=== PATIENT | female | born 1970 | race Caucasian/White ===

== ENCOUNTER 2017-10-02 22:55 | Observation (INO) | payer OTHER ==
[~2017-10-02] VITALS: Ht 162.6 cm; Wt 68.0 kg
[2017-10-02 23:06] VITALS: BP 130/65; PULSE 88; RESP 18; TEMP 98; O2SAT 99
[2017-10-02] MEDS ORDERED: SODIUM CHLORIDE 0.9% FLUSH 10 ML FLUSH IVF PRN (23:15)
[2017-10-02 23:18] VITALS: RESP 18
[2017-10-02 23:29] LABS: AUTOMATED NEUTROPHIL # 7.7 TH/MM3 (1.8-7.7); BASOPHIL % 0.3 % (0.0-2.0); EOSINOPHIL % 0.2 % (0.0-4.0); HEMATOCRIT 40.3 % (35.0-46.0); HEMOGLOBIN 13.5 GM/DL (11.6-15.3); LYMPH % 16.2 % (9.0-44.0); LYMPHOCYTE # 1.5 TH/MM3 (1.0-4.8); MEAN CORPUSCULAR HEMOGLOBIN 30.8 PG (27.0-34.0); MEAN CORPUSCULAR HGB CONC 33.5 % (32.0-36.0); MEAN PLATELET VOLUME 8.2 FL (7.0-11.0); MONO % 1.6 % (0.0-8.0); MONOCYTE # 0.2 TH/MM3 (0-0.9); NEUT % 81.7 % (16.0-70.0); PLATELET COUNT 276 TH/MM3 (150-450); RED BLOOD COUNT 4.38 MIL/MM3 (4.00-5.30); RED CELL DISTRIBUTION WIDTH 13.8 % (11.6-17.2); WHITE BLOOD COUNT 9.4 TH/MM3 (4.0-11.0)
--- NOTE | 2017-10-02 23:37 | PD ---
HPI Chief Complaint: Chest Pain Time Seen by Provider: 23:11 Travel History International Travel<30 days: No Contact w/Intl Traveler<30days: No Traveled to known affect area: No History of Present Illness HPI Patient is a 47-year-old female presents emergency department for evaluation of chest pain. Patient states been going on and off for the past few days, she became alarmed when the pain woke her up for a sound sleep and she was terrified she was very sweaty had pain radiating down her right arm so she was some nausea without vomiting and dizziness. She denies a history of coronary artery disease. She is not taking any blood thinners, no history of blood clots no history of hormone replacement therapy or oral contraceptive pills. She was given nitroglycerin and aspirin in route and had complete relief of her symptoms. She has never had a stress test or cardiac catheterization before. No history of high blood pressure high cholesterol or diabetes. States symptoms were severe, resolved, alleviating factors as above, duration is only a few minutes. She states initially she had some left arm pain but has a young child at home and is lifting the child a lot and thought that this was causing her arm pain but her pain moved to the other side. PFSH Past Medical History Cancer: Yes (breast) Immunizations Current: Yes Tetanus Vaccination: Unknown Influenza Vaccination: Yes ?: Not Social History Alcohol Use: No Tobacco Use: Yes Substance Use: No Allergies-Medications (Allergen,Severity, Reaction): Coded Allergies: penicillin G (Verified Allergy, Severe, Anaphylaxis, 10/02/17) Reported Meds & Prescriptions Reported Meds & Active Scripts Active No Active Prescriptions or Reported Medications Review of Systems Except as stated in HPI: all other systems reviewed are Neg Physical Exam Narrative GENERAL: Well-developed well-nourished no obvious distress SKIN: Focused skin assessment warm/dry. HEAD: Atraumatic. Normocephalic. EYES: Pupils equal and round. No scleral icterus. No injection or drainage. ENT: No nasal bleeding or discharge. Mucous membranes pink and moist. NECK: Trachea midline. No JVD. CARDIOVASCULAR: Regular rate and rhythm. No murmur appreciated. RESPIRATORY: No accessory muscle use. Clear to auscultation. Breath sounds equal bilaterally. GASTROINTESTINAL: Abdomen soft, non-tender, nondistended. Hepatic and splenic margins not palpable. MUSCULOSKELETAL: No obvious deformities. No clubbing. No cyanosis. No edema. NEUROLOGICAL: Awake and alert. No obvious cranial nerve deficits. Motor grossly within normal limits. Normal speech. PSYCHIATRIC: Appropriate mood and affect; insight and judgment normal. Data Data Last Documented VS Vital Signs Date Time Temp Pulse Resp B/P (MAP) Pulse Ox O2 Delivery O2 Flow Rate FiO2 10/02/17 23:19 89 18 100 Room Air 10/02/17 23:06 98.0 130/65 (86) Orders Orders Electrocardiogram (10/02/17:14) Complete Blood Count With Diff (10/02/17:14) Comprehensive Metabolic Panel (10/02/17:14) Magnesium (Mg) (10/02/17:14) Prothrombin Time / Inr (Pt) (10/02/17:14) Act Partial Throm Time (Ptt) (10/02/17:14) Troponin I (10/02/17:14) Lipase (10/02/17:14) Chest, Single Ap (10/02/17:14) Ecg Monitoring (10/02/17:14) Iv Access Insert/Monitor (10/02/17 23:14) Oximetry (10/02/17:14) Oxygen Administration (10/02/17:14) Sodium Chloride 0.9% Flush (Ns Flush) (10/02/17 23:15) Morphine Inj (Morphine Inj) (10/03/17 00:30) Nitroglycerin Sl (Nitrostat Sl) (10/03/17 00:30) Nitroglycerin 2% Oint (Nitroglycerin 2% (10/03/17 00:30) Activity Bed Rest With Brp (10/03/17:19) Vital Signs (Adult) Q4H (10/03/17:19) Cardiac Rhythm .As Directed (10/03/17) Notify Dr: Other .PRN (10/03/17) Notify Parameters (10/03/17:19) Resp Oxygen Nasal Cannula (10/03/17 ) Ckmb (Isoenzyme) Profile (10/03/17 00:19) Ckmb (Isoenzyme) Profile (10/03/17 03:19) Troponin I (10/03/17:19) Troponin I (10/03/17 03:19) Electrocardiogram (10/03/17 00:19) Electrocardiogram (10/03/17 03:19) ^ Obtain (10/03/17 00:19) Sodium Chloride 0.9% Flush (Ns Flush) (10/03/17 00:30) Sodium Chloride 0.9% Flush (Ns Flush) (10/03/17 09:00) Multimedia Manager / Telemetry ERIN.Q8H (10/03/17 00:19) Admit Order (Ed Use Only) (10/03/17 ) Labs Laboratory Tests Test 10/02/17 23:15 White Blood Count 9.4 TH/MM3 Red Blood Count 4.38 MIL/MM3 Hemoglobin 13.5 GM/DL Hematocrit 40.3 % Mean Corpuscular Volume 92.0 FL Mean Corpuscular Hemoglobin 30.8 PG Mean Corpuscular Hemoglobin Concent 33.5 % Red Cell Distribution Width 13.8 % Platelet Count 276 TH/MM3 Mean Platelet Volume 8.2 FL Neutrophils (%) (Auto) 81.7 % Lymphocytes (%) (Auto) 16.2 % Monocytes (%) (Auto) 1.6 % Eosinophils (%) (Auto) 0.2 % Basophils (%) (Auto) 0.3 % Neutrophils # (Auto) 7.7 TH/MM3 Lymphocytes # (Auto) 1.5 TH/MM3 Monocytes # (Auto) 0.2 TH/MM3 Eosinophils # (Auto) 0.0 TH/MM3 Basophils # (Auto) 0.0 TH/MM3 CBC Comment DIFF FINAL Differential Comment Prothrombin Time 10.5 SEC Prothromb Time International Ratio 1.0 RATIO Activated Partial Thromboplast Time 28.7 SEC Blood Urea Nitrogen 10 MG/DL Creatinine 0.62 MG/DL Random Glucose 97 MG/DL Total Protein 7.9 GM/DL Albumin 3.8 GM/DL Calcium Level 9.0 MG/DL Magnesium Level 2.2 MG/DL Alkaline Phosphatase 113 U/L Aspartate Amino Transf (AST/SGOT) 15 U/L Alanine Aminotransferase (ALT/SGPT) 16 U/L Total Bilirubin 0.2 MG/DL Sodium Level 141 MEQ/L Potassium Level 4.1 MEQ/L Chloride Level 104 MEQ/L Carbon Dioxide Level 27.2 MEQ/L Anion Gap 10 MEQ/L Estimat Glomerular Filtration Rate 103 ML/MIN Troponin I LESS THAN 0.02 NG/ML Lipase 104 U/L MDM Medical Decision Making Medical Screen Exam Complete: Yes Emergency Medical Condition: Yes Differential Diagnosis ACS, ME, PE is excluded by Wells and PERC criteria, pneumonia, reflux, esophageal spasm. Narrative Course Patient room to the emergency department, initial EKG troponin negative, basic labs reassuring, chest x-ray negative. She had gradual return of her symptoms, morphine and nitroglycerin were ordered for her. Discussed that until she has a stress test cannot give her reassurance is that this is not her heart. He certainly gives several concerning symptoms for heart disease. Discussed consideration for chest pain center observation and she is agreeable. Diagnosis Primary Impression: Chest pain Admitting Information Admitting Physician Requests: Observation Scripts No Active Prescriptions or Reported Meds Condition: Jacob Pate MD October 02, 2017 23:36
[2017-10-02 23:39] LABS: PROTHROMBIN TIME - PATIENT 10.5 SEC (9.8-11.6)
[2017-10-02 23:51] LABS: ALBUMIN 3.8 GM/DL (3.4-5.0); AST (GOT) 15 U/L (15-37); BICARBONATE 27.2 MEQ/L (21.0-32.0); BLOOD UREA NITROGEN 10 MG/DL (7-18); CHLORIDE 104 MEQ/L (98-107); CREATININE 0.62 MG/DL (0.50-1.00); GLOMERULAR FILTRATION RATE 103 ML/MIN (>89); GLUCOSE,RANDOM 97 MG/DL (74-106); MAGNESIUM 2.2 MG/DL (1.5-2.5); SODIUM (NA) 141 MEQ/L (136-145)
[2017-10-02 23:57] LABS: ALKALINE PHOSPHATASE 113 U/L (45-117); ALT (GPT) 16 U/L (10-53); TOTAL BILIRUBIN ADULT 0.2 MG/DL (0.2-1.0); TOTAL PROTEIN 7.9 GM/DL (6.4-8.2); TROPONIN I LESS THAN 0.02 NG/ML (0.02-0.05)
[2017-10-03] VITALS (9 sets, daily range): BP systolic 86–144; BP diastolic 54–77; PULSE 68–90; RESP 16–18; TEMP 97.5–98; O2SAT 95–100
--- NOTE | 2017-10-03 00:01 | RADRPT ---
EXAM DATE/TIME: 10/02/2017 23:23 [facility] COMPARISON: No previous studies available for comparison. INDICATIONS : SOB with chest pain x 4 days MEDICAL HISTORY : None. SURGICAL HISTORY : None. ENCOUNTER: Initial ACUITY: 4 - 6 days PAIN SCORE: 8/10 LOCATION: Bilateral chest FINDINGS: A single view of the chest demonstrates the lungs to be symmetrically aerated without evidence of mas s, infiltrate or effusion. The cardiomediastinal contours are unremarkable. Osseous structures are intact. CONCLUSION: No evidence of acute cardiopulmonary disease. Andres Henning MD on October 03, 2017 at 0:00 Board Certified Radiologist. This report was verified electronically.
[2017-10-03] MEDS ORDERED: NITROGLYCERIN 0.4 MG SL 25 TABS/BTL SL ONE (00:30)
[2017-10-03] MEDS ORDERED: MORPHINE SULFATE 4 MG/ML INJ IV PUSH ONE ×2 (00:30→06:15)
[2017-10-03] MEDS ORDERED: ONDANSETRON ODT 4 MG TAB PO ONE (00:30)
[2017-10-03] MEDS ORDERED: SODIUM CHLORIDE 0.9% FLUSH 10 ML FLUSH IV FLUSH PRN (00:30)
[2017-10-03] MEDS ORDERED: NITROGLYCERIN 2% OINT 1 GM PACKET TOPICAL ONE (00:30)
[2017-10-03 02:57] LABS: TROPONIN I LESS THAN 0.02 NG/ML (0.02-0.05)
[2017-10-03 06:43] LABS: TROPONIN I LESS THAN 0.02 NG/ML (0.02-0.05)
[2017-10-03] MEDS: SODIUM CHLORIDE 0.9% FLUSH 10 ML FLUSH IV FLUSH SCH ×2 (09:12→21:13)
[2017-10-03] MEDS: ONDANSETRON HCL 4 MG/2 ML VIAL IV PUSH PRN ×3 (09:12→21:13)
[2017-10-03] MEDS ORDERED: SODIUM CHLOR 0.9% 1000 ML INJ 1,000 ML IV ONE (10:04)
[2017-10-03] MEDS ORDERED: KETOROLAC TROMETHAMINE 30 MG/ML (IVP) VIAL IVP ONE (10:15)
--- NOTE | 2017-10-03 10:32 | HHI.HP ---
[facility] Primary Care Physician Iwona Cochran DO Chief Complaint Chest pain History of Present Illness This is a 47-year-old female the presents to ED via [facility] with a complaint of developing a discomfort in her chest while at home last evening. It was a discomfort in the center of her chest that woke her up. It radiated to left side of her back and into the left arm. She was diaphoretic and short of breath. She felt little nauseous and went to the bathroom and had one episode of nonbloody emesis. She called 911. At that time her discomfort was a 10 out of 10. She was given sublingual nitroglycerin tablets which did not help the discomfort. She states she was then given nitro spray sublingually which also did not help the discomfort. Was given nitroglycerin ointment in the ED which did not help the discomfort but states she developed a headache soon afterwards. The discomfort is worsened when she takes in a deep breath. When she takes in a deep breath a sharp discomfort will also occur. She has not had symptoms like this in the past. Denies recent illness. Denies fevers or chills. Cannot recall prior cardiac testing. Patient denies . States she has not had a period since 1999 when she had a an endometrial ablation. Review of Systems General: Patient denies fevers, chills, and recent travel. HEENT: Patient denies headache, sore throat, difficulty swallowing. Cardiovascular: Has the chest discomfort as mentioned above. Denies sensation of heart beating rapidly or irregularly. No syncope. She was diaphoretic. Respiratory: She has been shortness of breath and the discomfort is worsened with deep inspiration. Denies coughing wheezing or hemoptysis. GI: She was nauseous with one episode of nonbloody emesis. Denies diarrhea, abdominal pain, bloody stools. Musculoskeletal: Chronic back pain. Patient denies joint pain or edema. Denies calf pain or edema. Neurovascular: Patient denies numbness, tingling, weakness in extremities. Denies headache. Endocrine: Denies polyuria and polydipsia. Hematologic: Denies easy bruising. Skin: Denies rash or itching. Past Family Social History Allergies: Coded Allergies: penicillin G (Verified Allergy, Severe, Anaphylaxis, 10/02/17) Past Medical History Tobacco abuse. Denies hyperlipidemia, hypertension, diabetes, and CAD. Past Surgical History Endometrial ablation in 1999. Reported Medications Reported Meds & Active Scripts Active No Active Prescriptions or Reported Medications Active Ordered Medications Current Medications Medications (Trade) Dose Ordered Sig/Ailsha Route Start Time Stop Time Status Last Admin (NS Flush) 2 ml UNSCH PRN IV FLUSH 10/03/17 00:30 10/03/17 06:18 (NS Flush) 2 ml BID IV FLUSH 10/03/17 09:00 10/03/17 09:12 (Zofran Inj) 4 mg Q6H PRN IV PUSH 10/03/17 08:45 10/03/17 09:12 (Toradol Inj) 30 mg ONCE ONCE IVP 10/03/17 10:15 10/03/17 10:16 UNV Sodium Chloride 1,000 ml @ 1,000 mls/hr Q1H ONCE IV 10/03/17 10:04 10/03/17 11:03 UNV (Percocet 10-325 Mg) 1 tab Q4H PRN PO 10/03/17 10:15 UNV Family History Denies family history of CAD. Social History Smokes one half pack a series daily for the past 20 years. Prior to that she smoked about 1 pack a series daily for 10 years. Denies alcohol or illicit drug use. Physical Exam Vital Signs Vital Signs Date Time Temp Pulse Resp B/P (MAP) Pulse Ox O2 Delivery O2 Flow Rate FiO2 10/03/17 08:29 98.0 89 16 129/69 (89) 100 10/03/17 06:23 15 10/03/17 05:34 84 16 130/74 (92) 99 10/03/17 04:40 90 10/03/17 04:27 97.7 82 16 86/54 (65) 95 10/03/17 03:44 97.7 68 16 144/65 (91) 98 10/03/17 01:00 97.5 84 16 105/55 (72) 97 10/03/17 00:52 10/03/17 00:39 88 18 124/77 (93) 100 Room Air 10/02/17 23:19 89 18 100 Room Air 10/02/17 23:18 100 Room Air 10/02/17 23:18 18 10/02/17 23:06 98.0 88 18 130/65 (86) 99 Physical Exam GENERAL: This is a well-nourished, well-developed patient, in no apparent distress. Patient speaks in clear complete sentences. Patient is pleasant. HEENT: Head is atraumatic and normocephalic. Neck is supple without lymphadenopathy and trachea is midline. No JVD or carotid bruits. CARDIOVASCULAR: Regular rate and rhythm without murmurs, gallops, or rubs. RESPIRATORY: Clear to auscultation. Breath sounds equal bilaterally. No wheezes , rales, or rhonchi. Chest wall is nontender. No use of accessory muscles. GASTROINTESTINAL: Abdomen is nontender, nondistended. Abdomen soft. No obvious pulsatile mass or bruit. No CVA tenderness. Strong femoral pulses bilaterally. Normal bowel sounds in all quadrants. MUSCULOSKELETAL: Patient is moving upper and lower extremities freely. No calf tenderness or edema, no Homans sign. Strong pulses in upper and lower extremities. NEUROLOGICAL: Patient is alert and oriented. Cranial nerves 2-12 are grossly intact. No focal deficits and speech is clear. SKIN: No rash and turgor is normal. Laboratory Laboratory Tests Test 10/02/17 23:15 10/03/17 02:15 10/03/17 05:25 White Blood Count 9.4 Red Blood Count 4.38 Hemoglobin 13.5 Hematocrit 40.3 Mean Corpuscular Volume 92.0 Mean Corpuscular Hemoglobin 30.8 Mean Corpuscular Hemoglobin Concent 33.5 Red Cell Distribution Width 13.8 Platelet Count 276 Mean Platelet Volume 8.2 Neutrophils (%) (Auto) 81.7 Lymphocytes (%) (Auto) 16.2 Monocytes (%) (Auto) 1.6 Eosinophils (%) (Auto) 0.2 Basophils (%) (Auto) 0.3 Neutrophils # (Auto) 7.7 Lymphocytes # (Auto) 1.5 Monocytes # (Auto) 0.2 Eosinophils # (Auto) 0.0 Basophils # (Auto) 0.0 CBC Comment DIFF FINAL Differential Comment Prothrombin Time 10.5 Prothromb Time International Ratio 1.0 Activated Partial Thromboplast Time 28.7 Blood Urea Nitrogen 10 Creatinine 0.62 Random Glucose 97 Total Protein 7.9 Albumin 3.8 Calcium Level 9.0 Magnesium Level 2.2 Alkaline Phosphatase 113 Aspartate Amino Transf (AST/SGOT) 15 Alanine Aminotransferase (ALT/SGPT) 16 Total Bilirubin 0.2 Sodium Level 141 Potassium Level 4.1 Chloride Level 104 Carbon Dioxide Level 27.2 Anion Gap 10 Estimat Glomerular Filtration Rate 103 Troponin I LESS THAN 0.02 LESS THAN 0.02 LESS THAN 0.02 Lipase 104 Total Creatine Kinase 38 34 Result Diagram: 10/02/17231410/02/172314 Imaging Last 48 hours Impressions Chest X-Ray 10/02/172313 Signed Impressions: Service Date/Time: Monday, October 02, 2017 23:23 - CONCLUSION: No evidence of acute cardiopulmonary disease. Adnres Henning MD Course EKGs are sinus rhythm without significant ST segment depressions or elevations. Caprini VTE Risk Assessment Caprini VTE Risk Assessment: No/Low Risk (score <= 1) Caprini Risk Assessment Model Point Value = 1 Point Value = 2 Point Value = 3 Point Value = 5 Age 41-60 Minor surgery BMI > 25 kg/m2 Swollen legs Varicose veins or History of unexplained or recurrent spontaneous Oral contraceptives or hormone replacement Sepsis (< 1 month) Serious lung disease, including pneumonia (< 1 month) Abnormal pulmonary function Acute myocardial infarction Congestive heart failure (< 1 month) History of inflammatory bowel disease Medical patient at bed rest Age 61-74 Arthroscopic surgery Major open surgery (> 45 min) Laparoscopic surgery (> 45 min) Malignancy Confined to bed (> 72 hours) Immobilizing plaster cast Central venous access Age >= 75 History of VTE Family history of VTE Factor V Leiden Prothrombin [id number] Lupus anticoagulant Anticardiolipin antibodies Elevated serum homocysteine Heparin-induced thrombocytopenia Other congenital or acquired thrombophilia Stroke (< 1 month) Elective arthroplasty Hip, pelvis, or leg fracture Acute spinal cord injury (< 1 month) Prophylaxis Regimen Total Risk Factor Score Risk Level Prophylaxis Regimen 0-1 Low Early ambulation 2 Moderate Order ONE of the following: *Sequential Compression Device (SCD) *Heparin 5000 units SQ BID 3-4 Higher Order ONE of the following medications: *Heparin 5000 units SQ TID *Enoxaparin/Lovenox 40 mg SQ daily (WT < 150 kg, CrCl > 30 mL/min) *Enoxaparin/Lovenox 30 mg SQ daily (WT < 150 kg, CrCl > 10-29 mL/min) *Enoxaparin/Lovenox 30 mg SQ BID (WT < 150 kg, CrCl > 30 mL/min) AND/OR *Sequential Compression Device (SCD) 5 or more Highest Order ONE of the following medications: *Heparin 5000 units SQ TID (Preferred with Epidurals) *Enoxaparin/Lovenox 40 mg SQ daily (WT < 150 kg, CrCl > 30 mL/min) *Enoxaparin/Lovenox 30 mg SQ daily (WT < 150 kg, CrCl > 10-29 mL/min) *Enoxaparin/Lovenox 30 mg SQ BID (WT < 150 kg, CrCl > 30 mL/min) AND *Sequential Compression Device (SCD) Assessment and Plan Assessment and Plan * Chest pain: Patient has had serial cardiac enzymes and EKGs for ruling out purposes. She will be seen by Dr. Ruiz cardiology in the chest pain center. We will also get a d-dimer to hopefully rule out pulmonary embolus. That is ruled out that she would likely have a Lexiscan. Patient will be discharged home if her stress test is nonischemic with instructions to follow-up with PCP. Return to ED for interval issues. Patient is stable at this time. She is agreeable to this plan. Shalom Donaldson October 03, 2017 10:32
[2017-10-03] MEDS ORDERED: DEXAMETHASONE SOD PHOS 20 MG/5 ML VIAL IV PUSH ONE (12:45)
--- NOTE | 2017-10-03 13:52 | EKG ---
Date Performed: 10/03/2017 Time Performed: 02:22:27 PTAGE: 47 years EKG: Sinus rhythm INCOMPLETE RIGHT BUNDLE BRANCH BLOCK NONSPECIFIC T-WAVE ABNORMALITY BORDERLINE ECG PREVIOUS TRACING : 10/02/2017 23.04 Since previous tracing, no significant change noted DOCTOR: Earl Ruiz Interpretating Date/Time 10/03/2017 13:51:10
--- NOTE | 2017-10-03 13:52 | EKG ---
Date Performed: 10/03/2017 Time Performed: 05:31:24 PTAGE: 47 years EKG: Sinus rhythm POSSIBLE RIGHT VENTRICULAR CONDUCTION DELAY Poor R wave progression ABNORMAL ECG PREVIOUS TRACING : 10/03/2017 02.22 Since previous tracing, no significant change noted DOCTOR: Earl Ruiz Interpretating Date/Time 10/03/2017 13:50:23
--- NOTE | 2017-10-03 13:53 | EKG ---
Date Performed: 10/02/2017 Time Performed: 23:04:23 PTAGE: 47 years EKG: Sinus rhythm INCOMPLETE RIGHT BUNDLE BRANCH BLOCK NONSPECIFIC T-WAVE ABNORMALITY BORDERLINE ECG NO PREVIOUS TRACING DOCTOR: Earl Ruiz Interpretating Date/Time 10/03/2017 13:52:08
[2017-10-03] MEDS ORDERED: REGADENOSON INJ 0.4 MG/5 ML SYR ONE (14:34)
[2017-10-03] MEDS: oxyCODONE/ACETAMINOPHEN 10 MG/325 MG TAB PO PRN ×2 (15:46→21:14)
--- NOTE | 2017-10-03 16:11 | RADRPT ---
EXAM DATE/TIME: 10/03/2017 14:20 [facility] COMPARISON: No previous studies available for comparison. INDICATIONS : Chest pain radiating down right arm with diaphoresis, nausea and dizziness. Angina. DOSE: 27.4 mCi Tc99m Myoview at stress. 8.4 mCi Tc99m Myoview at rest. 0.4 mg Lexiscan STRESS SYMPTOMS: Headache, chest pain, and anxious. EJECTION FRACTION: 65% MEDICAL HISTORY : Carcinoma, breast. SURGICAL HISTORY : None. ENCOUNTER: Initial ACUITY: 4 - 6 days PAIN SCALE: 8/10 LOCATION: chest TECHNIQUE: The patient underwent pharmacologic stress with infusion of prescribed dose. Continuous ECG tracing was monitored during stress. Gated SPECT imaging was performed after stress and conventional SPECT i maging was performed at rest. The examination was performed on a SPECT/CT scanner, both attenuation and non-corrected datasets were reviewed. FINDINGS: DISTRIBUTION: The maximum perfused segment at stress is in the anterior wall. PERFUSION STUDY: The pattern of perfusion at stress is within normal limits. GATED STUDY: There is intact wall motion and thickening without hypokinetic or dyskinetic segments. CONCLUSION: Normal study RISK CATEGORY: Low (<1% Annual Mortality Rate) Andres Cota MD on October 03, 2017 at 16:07 Board Certified Radiologist. This report was verified electronically.
--- NOTE | 2017-10-03 18:58 | ECHRPT ---
Indication: Chest pain, unspecified CONCLUSIONS The transthoracic study is normal by two-dimensional, color flow imaging and Doppler interrogation. The pulmonary valve is not well visualized. The transthoracic study is normal by two-dimensional, color flow imaging and Doppler interrogation. normal lv size, wall thicknes, ef@ 55% BP: / HR: Rhythm: MEASUREMENTS (Male / Female) Normal Values Technical Quality: 2D ECHO LV Diastolic Diameter PLAX 4.1 cm 4.2 - 5.9 / 3.9 - 5.3 cm LV Systolic Diameter PLAX 2.9 cm IVS Diastolic Thickness 0.9 cm 0.6 - 1.0 / 0.6 - 0.9 cm LVPW Diastolic Thickness 1.0 cm 0.6 - 1.0 / 0.6 - 0.9 cm LV Relative Wall Thickness 0.4 RV Internal Dim ED PLAX 2.2 cm M-MODE Aortic Root Diameter MM 2.8 cm LA Systolic Diameter MM 3.4 cm LA Ao Ratio MM 1.2 AV Cusp Separation MM 1.7 cm FINDINGS LEFT VENTRICLE Normal left ventricular size and wall thickness. The left ventricular systolic function is normal wi th an estimated ejection fraction in the range of 60-65%. Left ventricular diastolic function parameters a re normal. RIGHT VENTRICLE Normal right ventricular size and systolic function. LEFT ATRIUM The left atrial size is normal. RIGHT ATRIUM The right atrial size is normal. ATRIAL SEPTUM Normal atrial septal thickness without atrial level shunting by limited color doppler interrogation. AORTA The aortic root and proximal ascending aorta are normal in size on limited imaging. MITRAL VALVE Structurally normal mitral valve. No mitral valve stenosis or regurgitation. AORTIC VALVE Trileaflet aortic valve. No aortic valve stenosis or regurgitation. TRICUSPID VALVE Structurally normal tricuspid valve. No tricuspid valve stenosis or regurgitation. PULMONARY VALVE The pulmonary valve is not well visualized. VESSELS The inferior vena cava is normal in size. PERICARDIUM No pericardial effusion. Ismael Sands MD, FACC, FSCAI (Electronically Signed) Final Date:03 Oct 2017 18:57
[2017-10-03] MEDS ORDERED: DEXAMETHASONE SOD PHOS 4 MG/ML VIAL IV PUSH ONE (22:30)
[2017-10-04 00:32] VITALS: BP 125/67; PULSE 70; RESP 16; TEMP 97.5; O2SAT 95
[2017-10-04] MEDS: ONDANSETRON HCL 4 MG/2 ML VIAL IV PUSH PRN (03:57)
[2017-10-04] MEDS: oxyCODONE/ACETAMINOPHEN 10 MG/325 MG TAB PO PRN (03:59)
[2017-10-04 04:08] VITALS: BP 122/59; PULSE 74; RESP 16; TEMP 97.5; O2SAT 96
[2017-10-04 04:21] VITALS: PULSE 77
[2017-10-04] MEDS ORDERED: DEXAMETHASONE SOD PHOS 4 MG/ML VIAL IV PUSH ONE (04:30)
[2017-10-04 07:10] VITALS: PULSE 72
[2017-10-04 07:53] VITALS: O2SAT 98
[2017-10-04] MEDS: SODIUM CHLORIDE 0.9% FLUSH 10 ML FLUSH IV FLUSH SCH (09:24)
[2017-10-04] MEDS ORDERED: MEDR4PAK PO (09:28)
[2017-10-04] MEDS ORDERED: ZOFR4TAB PO (09:28)
--- NOTE | 2017-10-04 09:29 | HHI.DCPOC ---
Discharge Care Plan Diagnosis: (1) Viral pericarditis Goals to Promote Your Health * To prevent worsening of your condition and complications * To maintain your health at the optimal level Directions to Meet Your Goals Take your medications as prescribed Follow your dietary instruction Follow activity as directed Keep your appointments as scheduled Take your immunizations and boosters as scheduled If your symptoms worsen call your PCP, if no PCP go to Urgent Care Center or Emergency Room Smoking is Dangerous to Your Health. Avoid second hand smoke Call the 24-hour hour crisis hotline for domestic abuse at Cristal Ohara October 04, 2017 09:29
--- NOTE | 2017-10-04 09:35 | HHI.DS ---
Discharge Summary Admission Date October 03, 2017 at 00:22 Discharge Date: October 04, 2017 Admitting Diagnosis Chest pain (1) Viral pericarditis Diagnosis: Principal ICD Codes: B33.23 - Viral pericarditis Status: Acute Procedures Last 48 hours Impressions Myocardial Perfusion Scan Nuc Med 10/03/17 0000 Signed Impressions: Service Date/Time: September 14:20 - CONCLUSION: Normal study RISK CATEGORY: Low (<1%% Annual Mortality Rate) Andres Cota MD Chest X-Ray 10/02/174 Signed Impressions: Service Date/Time: Monday, October 02, 2017 23:23 - CONCLUSION: No evidence of acute cardiopulmonary disease. Andres Henning MD Brief History 47-year-old female no significant past medical history presented to the emergency room for further evaluation of chest pain. Onset substernal with radiation to left-sided back and left arm. Associated symptoms included dyspnea and diaphoresis. Admitted to chest pain center. Seen and evaluated by Dr. Earl Ruiz. Ruled out with 3 sets of EKGs and cardiac enzymes proceeded with a chemical cardiac stress testing which was nonischemic. Chest discomfort suspected to be from viral pericarditis, monitored overnight and given Decadron IV 2 doses. Chest discomfort improved after Decadron doses and was discharged home with Medrol Dosepak. Upon discharge requested pain and nausea medications. Informed pain medication unable to be prescribed as she will have to get prescription from her PCP. An antiemetic and Medrol dose provided upon discharge. CBC/BMP: 10/02/17 2315 10/02/17 2315 Significant Findings Laboratory Tests Test 10/02/17 23:15 10/03/17 02:15 10/03/17 05:25 10/03/17 11:55 Neutrophils (%) (Auto) 81.7 % (16.0-70.0) Troponin I LESS THAN 0.02 NG/ML LESS THAN 0.02 NG/ML LESS THAN 0.02 NG/ML PE at Discharge GENERAL: Alert WN, WD, NAD, female HEAD: NC, AT EYES: Sclera clear, conjunctiva without injection, pupils equal and round ENT: Mucous membranes pink and moist CV: RRR, without murmur, rub, gallop, no JVD, S1-S2 no S3-S4. RESP: Clear lungs throughout bilateral, no crackles, wheeze, rhonchi, symmetrical chest rise, nonlabored, able to speak in full sentences MS: Normal tone x4 extremities, full range of motion NEURO: CN II through CN XII grossly intact, motor strength 5/5 PSYCH: A+O x3, appropriate speech, insight and judgment. SKIN: Normal turgor, normal texture Pt Condition on Discharge: Good Discharge Disposition: Discharge Home Discharge Instructions DIET: Follow Instructions for: Heart Healthy Diet Activities you can perform: Regular-No Restrictions Cristal Ohara October 04, 2017 09:35
[2017-10-04 09:38] VITALS: BP 95/51; PULSE 79; RESP 20; TEMP 97.7; O2SAT 97
--- NOTE | 2017-10-04 09:52 | PD.CARD.PN ---
Subjective Subjective Remarks Chest discomfort "improved, currently 07/06." Reports continued headache from " 14 doses of nitro given to me be EMS and in ER." Reports nausea from "being NPO yesterday." Otherwise no further complaints. Objective Medications Current Medications Medications (Trade) Dose Ordered Sig/Alisha Route Start Time Stop Time Status Last Admin (NS Flush) 2 ml UNSCH PRN IV FLUSH 10/03/17 00:30 10/03/17 06:18 (NS Flush) 2 ml BID IV FLUSH 10/03/17 09:00 10/04/17 09:24 (Zofran Inj) 4 mg Q6H PRN IV PUSH 10/03/17 08:45 10/04/17 03:57 (Percocet 10-325 Mg) 1 tab Q4H PRN PO 10/03/17 10:15 10/04/17 03:59 Vital Signs / I&O Vital Signs Date Time Temp Pulse Resp B/P (MAP) Pulse Ox O2 Delivery O2 Flow Rate FiO2 10/04/17 07:53 98 21 10/04/17 05:05 21 10/04/17 04:21 77 10/04/17 04:08 97.5 74 16 122/59 (80) 96 10/04/17 00:32 97.5 70 16 125/67 (86) 95 10/03/17 21:18 97.5 81 16 130/74 (92) 99 10/03/17 17:50 20 10/03/17 16:59 98.0 78 16 130/61 (84) 98 I/O 10/03/17 10/03/17 10/03/17 10/04/17 10/04/17 10/04/17 07:00 15:00 23:00 07:00 15:00 23:00 Intake Total 720 ml Balance 720 ml Intake Oral 720 ml # Voids 2 Physical Exam GENERAL: Alert WN, WD, NAD, female HEAD: NC, AT EYES: Sclera clear, conjunctiva without injection, pupils equal and round ENT: Mucous membranes pink and moist CV: RRR, without murmur, rub, gallop, no JVD, S1-S2 no S3-S4. RESP: Clear lungs throughout bilateral, no crackles, wheeze, rhonchi, symmetrical chest rise, nonlabored, able to speak in full sentences MS: Normal tone x4 extremities, full range of motion NEURO: CN II through CN XII grossly intact, motor strength 5/5 PSYCH: A+O x3, appropriate speech, insight and judgment SKIN: Normal turgor, normal texture Laboratory Laboratory Tests Test 10/03/17 11:55 D-Dimer Quantitative (PE/DVT) 0.45 MG/L FEU Imaging Last 48 hours Impressions Myocardial Perfusion Scan Nuc Med 10/03/17 0000 Signed Impressions: Service Date/Time: September 14:20 - CONCLUSION: Normal study RISK CATEGORY: Low (<1%% Annual Mortality Rate) Andres Cota MD Chest X-Ray 10/02/17 2314 Signed Impressions: Service Date/Time: Monday, October 02, 2017 23:23 - CONCLUSION: No evidence of acute cardiopulmonary disease. Andres Henning MD Assessment and Plan Assessment and Plan Chest pain-chest pain center. Ruled out 3 sets of EKGs, cardiac enzymes, and seen and evaluated by dust control engineer yesterday. Proceeded with chemical stress test which did not suggest ischemia. Dr. Earl Ruiz felt chest discomfort to be caused from viral pericarditis. Monitored overnight and provided x2 doses Decadron with plans to discharge home with Medrol Dosepak chest discomfort improved. Chest discomfort has improved therefore will discharge home as planned with follow-up with her PCP. Patient is agreeable to plan of care and verbalizes understanding. Upon discharge requested pain medication, Percocet, for chest pain and "nitro" headache. Discussed opioids not the drug of choice for pericarditis, as Medrol dose pack will help to relieve inflammation. Reports nausea is due to prolonged NPO status, which was lifted yesterday afternoon, requesting zofran for discharge. Cristal Ohara October 04, 2017 09:52
--- NOTE | 2017-10-04 14:09 | TR ---
Date Performed: 10/03/2017 Time Performed: 14:46:34 DOCTOR: Luis Mcnair DRUG LIST: CLINICAL HISTORY: REASON FOR TEST: REASON FOR ENDING: OBSERVATION: CONCLUSION: COMMENTS: Lexiscan stress test was performed under standard four minute protocol. Radionuclide was injected one minute prior to ending the test. No electrocardiographic abormalities were present t o suggest ischemia. Nuclear imaging and interpretation are pending.
== END 2017-10-04 12:02 | disposition home or self-care (01) ==
LOC: NEPC 22:55 → NEDA 10-03 00:22 → NEPGCP 10-03 00:56
PROVIDERS: ADMIT Internal Medicine Cardiovascular Disease; ATTEND Internal Medicine Cardiovascular Disease
DX: B33.23 Viral pericarditis (principal); R61 Generalized hyperhidrosis; M79.602 Pain in left arm; Z85.3 Personal history of malignant neoplasm of breast; F17.210 Nicotine dependence, cigarettes, uncomplicated; R11.2 Nausea with vomiting, unspecified; R51 Headache; R06.02 Shortness of breath; I45.10 Unspecified right bundle-branch block
CPT/HCPCS: 71045; 78452; 80053; 82550; 83690; 83735; 84484; 85025; 85379; 85610; 85730; 93005; 93017; 93306; 96361; 96374; 96375; 96376; 99285; A9502; G0378; J1100; J1885; J2270; J2405; J2785; J7030